=== PATIENT | male | born 2000 | race African-American/Black ===

== ENCOUNTER 2022-05-10 19:54 | Emergency (ER) | payer OTHER ==
[~2022-05-10] VITALS: Ht 177.8 cm; Wt 77.0 kg
[2022-05-10 19:58] VITALS: BP 140/90
== END 2022-05-10 22:55 | disposition left against medical advice (07) ==
LOC: ER 19:54
DX: Z53.21 Procedure and treatment not carried out due to patient leaving prior to being seen by health care provider (principal)